=== PATIENT | female | born 1985 | race Caucasian/White ===

== ENCOUNTER 2020-06-27 10:39 | Emergency (ER) | payer OTHER, SELFPAY ==
[2020-06-27 10:59] VITALS: BP 128/77; PULSE 98; RESP 18; TEMP 36.6; O2SAT 100
--- NOTE | 2020-06-27 11:09 | ED.EAR ---
HPI - Ear Problem General Chief complaint: Ear Stated complaint: Ear pain Time Seen by Provider: 06/27/20 11:04 Source: patient and RN notes reviewed Mode of arrival: ambulatory Limitations: no limitations History of Present Illness HPI Narrative: Patient presents today with a 1 week history of bilateral ear pain and intermittent dry cough with postnasal drip. Denies ear drainage, decreased hearing, nasal congestion, rhinorrhea, sore throat, fever, shortness of breath, loss of taste or smell. Denies exposure to COVID-19 or any other sick contacts. She has been taking Tylenol with mild relief Complaint: ear pain Related Data Home Medications Medication Instructions Recorded Confirmed aripiprazole mg 06/27/20 bupropion HCl mg PO 06/27/20 bupropion HCl mg PO 06/27/20 prazosin 06/27/20 venlafaxine mg PO 06/27/20 Allergies Allergy/AdvReac Type Severity Reaction Status Date / Time No Known Allergies Allergy Unverified 05/29/17 21:27 Review of Systems Review of Systems: Narrative: CONSTITUTIONAL: Denies body aches, fever, chills, or sweats. EYES: Denies visual changes, redness, or discharge. ENT: Denies rhinorrhea, congestion, sore throat. + Bilateral ear pain, postnasal drip CARDIOVASCULAR: Denies chest pain, palpitations, or edema. RESPIRATORY: Denies dyspnea. + Cough GASTROINTESTINAL: Denies abdominal pain, nausea, vomiting, or diarrhea. GENITOURINARY: Denies dysuria or hematuria. SKIN: Denies rash, itching, or wounds. MUSCULOSKELETAL: Denies back pain, joint pain, or myalgia. NEUROLOGIC: Denies headache, numbness, tingling, or weakness. PSYCH: Denies depression or anxiety. [facility]LY [facility] Past Medical History Medical History (Updated 06/27/20 @ 11:39 by Jammie Mosher, [facility], ) Delivery with history of Depression Family History Family History (Updated 05/09/14 @ 15:26 by DOCTOR UNKNOWN) Other Family history of cardiovascular disease Family history of malignant neoplasm of cervix Family history of malignant neoplasm of uterus Hypertension Social History Social History Smoking status: Never smoker Alcohol intake: current Comments At time of signature, I have reviewed and agree with nursing past medical, surgical, social and family history unless otherwise noted. Please see nursing chart for further information. There is no relevant family history pertinent to the presenting complaint Exam Narrative: Exam Narrative: GENERAL: Well-appearing, well-nourished, and in no acute distress. HEAD: Normocephalic, atraumatic. EYES: EOMI. No redness or drainage. Conjunctivae normal. ENT: Mucous membranes pink and moist. Nares clear. No rhinorrhea. Right ear canal is completely occluded with soft cerumen. See procedure note. Left ear canal is partially occluded with cerumen, but visible TM is normal. Throat normal with small amount of white postnasal drainage. Uvula midline. NECK: Normal AROM. Supple. No lymphadenopathy. CHEST: No respiratory distress. Clear to auscultation. HEART: Regular rate and rhythm. No murmur appreciated. Normal peripheral pulses. EXTREMITIES: Normal range of motion. No edema. SKIN: Warm, dry, no rash. Capillary refill normal. Normal skin turgor. NEURO: No focal deficits. Alert and oriented x3. Gait steady. PSYCH: Normal affect. No signs of depression or anxiety. Course Vital Signs Vital signs: Vital Signs Temperature 97.8 F 06/27/20 10:59 Pulse Rate 98 06/27/20 10:59 Respiratory Rate 18 06/27/20 10:59 Blood Pressure 128/77 06/27/20 10:59 Pulse Oximetry 100 06/27/20 10:59 Temperature 97.8 F 06/27/20 10:59 Pulse Rate 98 06/27/20 10:59 Respiratory Rate 18 06/27/20 10:59 Blood Pressure 128/77 06/27/20 10:59 Pulse Oximetry 100 06/27/20 10:59 Reviewed. Pt has been instructed to follow up with her PCP regarding her elevated blood pressure today. Procedures Ear Wax Removal Right Ear: Ear Wax Removal
== END 2020-06-27 11:23 | disposition home or self-care (01) ==
PROVIDERS: Emergency Provider Nurse Practitioner
DX: J06.9 Acute upper respiratory infection, unspecified (principal); H61.21 Impacted cerumen, right ear
CPT/HCPCS: 69210; 99212; G0463

== ENCOUNTER 2020-11-21 12:00 | Emergency (ER) | payer OTHER, SELFPAY ==
[2020-11-21 12:33] VITALS: BP 138/85; PULSE 83; RESP 16; TEMP 36.4; O2SAT 100
--- NOTE | 2020-11-21 13:19 | ED.EYEPROB ---
HPI - Eye Problem General Chief complaint: Eye Problems Stated complaint: Eye Pain Time Seen by Provider: 11/21/20 12:45 Source: patient, RN notes reviewed and old records reviewed Mode of arrival: ambulatory Limitations: no limitations History of Present Illness HPI Narrative: 35 year old female who presents to [facility] care with complaints of one week duration of right eye irritation and redness with patient stating clear to greenish drainage from her right eye with her eye matted shut this morning. Patient states that she used baby shampoo to wash her right eye out this morning to remove matter. Patient denies any injury to her right eye or any known foreign body with some redness to the upper eyelid with raised lesion noted middle of upper eyelid right eye along lash line. Patient denies any sharp pain to her right eye or any changes in vision. Visual acuity with right eye 20/30 left eye 20/50 with no corrective lens worn. MD chief complaint: other (eye drainage right eye with lesion upper eyelid.) Onset (ago): week(s) (1) Onset description: gradual Duration: progressively worsening Location: right eye Eye Symptoms: discharge Mechanism: none Treatments Prior to Arrival: OTC eye drops and other (cleansed with baby shampoo) Related Data Allergies Allergy/AdvReac Type Severity Reaction Status Date / Time No Known Allergies Allergy Verified 11/21/20 12:43 Review of Systems Review of Systems: Narrative: CONSTITUTIONAL: Denies fever, chills, or sweats. EYES: Denies visual changes, redness along right upper eyelid, with clear to green discharge. ENT: Denies rhinorrhea, congestion, sore throat, or otalgia. CARDIOVASCULAR: Denies chest pain, palpitations, or edema. RESPIRATORY: Denies cough or dyspnea. GASTROINTESTINAL: Denies abdominal pain, nausea, vomiting, or diarrhea. GENITOURINARY: Denies dysuria or hematuria. SKIN: Denies rash or itching. MUSCULOSKELETAL: Denies back pain, joint pain, or myalgia. NEUROLOGIC: Denies headache, numbness, or weakness. PSYCHIATRIC: Positive history of anxiety or depression. All systems reviewed & are unremarkable except as noted in HPI and below PMFSH Past Medical History Medical History (Updated 11/25/20 @ 14:56 by Latasha Casanova NP) Anxiety Delivery with history of Depression Surgical History Surgical History (Updated 11/25/20 @ 14:57 by Latasha Casanova NP) Hx of cholecystectomy Previous section Family History Family History (Updated 05/09/14 @ 15:26 by DOCTOR UNKNOWN) Other Family history of cardiovascular disease Family history of malignant neoplasm of cervix Family history of malignant neoplasm of uterus Hypertension Social History Social History (Updated 11/25/20 @ 14:59 by Latasha Casanova NP) Smoking status: Current every day smoker Tobacco type: cigarettes Alcohol intake: current Substance use: never Living arrangements: with family Gender identity (if verbalized by the patient): Female Comments At time of signature agree with nursing documentation of social, surgical medical and family history. There is no pertinent family history relevant to presenting complaint. Exam Narrative: Exam Narrative: GENERAL: Well-appearing, well-nourished, and in no acute distress. HEAD: Normocephalic, atraumatic. EYES: PERRLA and EOMI. drainage from right eye clear to greenish in color for past week duration. This morning awoke with her eye matted shut today. No visual changes or sharp pain to her right eye, raised red tissue area along lash line of right upper eyelid ENT: Nares clear, no rhinorrhea or epistaxis. Mucous membranes moist. NECK: Supple.no lymphadenopathy CHEST: Clear to auscultation. No respiratory distress.ARMAND 100% on room air HEART: Regular rate and rhythm. No murmur heard. Normal peripheral pulses. ABDOMEN: Soft, nontender, nondistended, normal active bowel sounds. EXTREMITIES: Normal range of motion. No edema. SKIN: Warm, d
== END 2020-11-21 13:26 | disposition home or self-care (01) ==
PROVIDERS: Emergency Provider Registered Nurse
DX: H00.011 Hordeolum externum right upper eyelid (principal); F17.210 Nicotine dependence, cigarettes, uncomplicated
CPT/HCPCS: 99213; G0463

== ENCOUNTER 2021-08-23 13:45 | Emergency (ER) | payer OTHER, SELFPAY ==
[2021-08-23 13:55] VITALS: BP 134/97; PULSE 84; RESP 16; TEMP 37.5; O2SAT 100
--- NOTE | 2021-08-23 14:32 | ED.EYEPROB ---
HPI - Eye Problem General Chief complaint: Eye Problems Stated complaint: Eye Pain Time Seen by Provider: 08/23/21 14:32 Source: patient and RN notes reviewed Mode of arrival: ambulatory Limitations: no limitations History of Present Illness HPI Narrative: 36-year-old female presents to the [facility] with complaints of bilateral eye discomfort, they were crusted over the last couple days. States redness started sometime last week. Has been using dyth-rkt-pdoanac eyedrops with no relief. Does not wear contact lenses chief complaint: eye pain and eye redness Related Data Allergies Allergy/AdvReac Type Severity Reaction Status Date / Time No Known Allergies Allergy Verified 08/23/21 14:06 Review of Systems Review of Systems: All systems reviewed & are unremarkable except as noted in HPI and below Constitutional: Constitutional: Reports no additional constitutional complaints, Denies chills and Denies fever(s) Eyes: Eyes: Reports as per HPI, Denies change in vision and Denies photophobia Comments: Redness and crusting ENT: Reports system reviewed and no additional complaints, except as documented Cardiovascular: Cardiovascular: Reports no additional cardiovascular complaints Respiratory: Respiratory: Reports no additional respiratory complaints Gastrointestinal: Gastrointestinal: Reports no additional gastrointestinal complaints Musculoskeletal: Musculoskeletal: Reports no additional musculoskeletal complaints Integumentary/Breasts: Skin/Breast: Reports system reviewed and no additional complaints, except as docu Neurologic: Reports system reviewed and no additional complaints, except as documented Psychiatric: Psychiatric: Reports no additional psychiatric complaints Allergic/Immunologic: Allergic/Immunologic: Reports no additional allergic/immunologic complaints PMF Past Medical History Medical History (Updated 08/24/21 @ 00:00 by Lewis Granado) Anxiety Delivery with history of Depression Surgical History Surgical History Hx of cholecystectomy Previous section Family History Family History Other Family history of cardiovascular disease Family history of malignant neoplasm of cervix Family history of malignant neoplasm of uterus Hypertension Social History Social History Smoking status: Current every day smoker Tobacco type: cigarettes Alcohol intake: current Substance use: never Gender identity (if verbalized by the patient): Female Comments At the time of my signature, I reviewed and agree with the nursing past medical, surgical, social, and family history. There is no relevant family history pertinent to the patient complaint. Exam Const: General: healthy appearing, no acute distress and alert Nutritional Appearance: well nourished and obese Orientation/consciousness: patient oriented x3 Limitations: no limitations HENMT: Head: normal to inspection Eyes: Visual Thakkar: normal visual thakkar by confrontation Alignment and Position: alignment normal Periorbital: periorbital findings normal Conjunctivae: conjunctival abnormality bilateral conjunctival injection (With erythema lower lids) Cornea: corneas normal Pupils: Equal, round and reactive pupils present EOM: EOMs intact bilaterally Neck: Neck: normal visual inspection, no lymphadenopathy and no meningeal signs Chest: Chest palpation & inspection: normal inspection of the chest Resp: Effort & Inspection: normal respiratory effort and no use of accessory muscles Auscultation: clear to auscultation bilaterally, no crackles, no rales, no rhonchi and no wheezes Cardio: Rate: regular rate Rhythm: regular rhythm Skin: General skin exam: normal color Rashes: no rashes Wounds: no wounds Neuro: General: patient oriented x3, move
== END 2021-08-23 14:48 | disposition home or self-care (01) ==
PROVIDERS: Emergency Provider Nurse Practitioner
DX: H10.9 Unspecified conjunctivitis (principal); F17.210 Nicotine dependence, cigarettes, uncomplicated
CPT/HCPCS: 99213; G0463

== ENCOUNTER 2021-11-02 16:21 | Emergency (ER) | payer OTHER, SELFPAY ==
[2021-11-02 16:30] VITALS: BP 148/99; PULSE 117; RESP 16; TEMP 37.8; O2SAT 98
--- NOTE | 2021-11-02 16:30 | ED.SKABFB ---
HPI - Skin/Abscess/Foreign Bdy General Chief complaint: Skin/Abscess/Foreign Body Stated complaint: Insect bite Time Seen by Provider: 11/02/21 16:30 Source: patient, RN notes reviewed and old records reviewed Mode of arrival: ambulatory Limitations: no limitations History of Present Illness HPI narrative: 36-year-old female presents to the [facility] after believing she was bit by an insect yesterday to the left posterior upper arm. Redness, inflammation and increased warmth to the area. Center is 2 cm diameter red indurated area with a blister. Redness extends up to 12 cm at its widest point. No pain or tenderness to the joints distal to infection. No treatment prior to arrival MD complaint: insect bite/sting Related Data Allergies Allergy/AdvReac Type Severity Reaction Status Date / Time No Known Allergies Allergy Verified 08/23/21 14:06 Review of Systems Review of Systems: All systems reviewed & are unremarkable except as noted in HPI and below Constitutional: Constitutional: Reports no additional constitutional complaints, Denies chills, Denies fever(s), Denies headache(s) and Denies weakness Eyes: Eyes: Reports no additional eye complaints and Denies change in vision ENT: Reports system reviewed and no additional complaints, except as documented, Denies dysphagia, Denies dizziness, Denies headache(s), Denies nasal congestion and Denies sore throat Cardiovascular: Cardiovascular: Reports no additional cardiovascular complaints, Denies chest pain, Denies syncope and Denies dyspnea Respiratory: Respiratory: Reports no additional respiratory complaints, Denies chest congestion, Denies cough, Denies dyspnea and Denies wheezing Gastrointestinal: Gastrointestinal: Denies dysphagia Musculoskeletal: Musculoskeletal: Reports no additional musculoskeletal complaints and Denies numbness Integumentary/Breasts: Skin/Breast: Reports as per HPI and Reports erythema (Posterior left upper arm) Neurologic: Reports system reviewed and no additional complaints, except as documented, Denies dizziness, Denies syncope, Denies headache(s), Denies focal weakness, Denies numbness and Denies weakness Psychiatric: Psychiatric: Reports no additional psychiatric complaints Allergic/Immunologic: Allergic/Immunologic: Reports no additional allergic/immunologic complaints and Denies wheezing PMFSH Past Medical History Medical History (Updated 11/02/21 @ 20:18 by Kamilah Owens APRN) Anxiety Delivery with history of Depression Surgical History Surgical History Hx of cholecystectomy Previous section Family History Family History Other Family history of cardiovascular disease Family history of malignant neoplasm of cervix Family history of malignant neoplasm of uterus Hypertension Social History Social History Smoking status: Current every day smoker Tobacco type: cigarettes Alcohol intake: current Substance use: never Gender identity (if verbalized by the patient): Female Comments At the time of my signature, I reviewed and agree with the nursing past medical, surgical, social, and family history. There is no relevant family history pertinent to the patient complaint. Exam Const: General: healthy appearing, no acute distress and alert Nutritional Appearance: well nourished Orientation/consciousness: patient oriented x3 Limitations: no limitations HENMT: Head: normal to inspection Ears: external ears normal Eyes: Pupils: Equal, round and reactive pupils present Neck: Neck: normal visual inspection, no lymphadenopathy and no meningeal signs Chest: Chest palpation & inspection: normal inspection of the chest Resp: Effort & Inspection: normal respiratory effort Auscultation: clear to auscultation bilaterally Cardio: Rate: regu
== END 2021-11-02 16:38 | disposition home or self-care (01) ==
PROVIDERS: Emergency Provider Nurse Practitioner
DX: L03.114 Cellulitis of left upper limb (principal); F17.210 Nicotine dependence, cigarettes, uncomplicated
CPT/HCPCS: 99213; G0463

== ENCOUNTER 2022-07-03 02:47 | Emergency (ER) | payer OTHER, SELFPAY ==
--- NOTE | ~2022-07-03 | CT_ITS ---
EXAMINATION: CT pelvis w con DATE: 07/03/2022 06:02 INDICATION: Left labial swelling, abscess TECHNIQUE: Computed tomography (CT) of the pelvis was performed with 100 CC Omnipaque 350 intravenous contrast. Automated exposure control and iterative reconstruction technique were employed. Exam dose : 1059.38 mGy-cm total exam DLP. COMPARISON: 05/01/2014 CT abdomen pelvis FINDINGS: There is septated up to approximately 1.5 cm wide 8.5 cm anteroposterior dimension abscess is approximately 4 mm thick wall along the left labium. Left ovarian cysts are noted measuring up to approximately 2 cm. Peripherally enhancing approximately 1.7 cm left ovarian cyst. The uterus and adnexal areas are otherwise unremarkable. Normal appendix. No bowel obstruction is evident. The inferior tips of the kidneys are unremarkable. Distal abdominal aorta is of normal caliber. No in traperitoneal or retroperitoneal or pelvic mass lesion or adenopathy or ascites is noted otherwise. Included skeletal structures are unremarkable. IMPRESSION: Left labial abscess Left ovarian cysts Normal appendix Reviewed, dictated and finalized at [facility] Reviewed, dictated and finalized at [facility]. [facility] [employer]
[2022-07-03 02:50] VITALS: BP 156/78; PULSE 110; RESP 20; TEMP 36.6; O2SAT 98
[2022-07-03 03:44] VITALS: BP 138/91; O2SAT 99
[2022-07-03 03:46] VITALS: BP 122/76; O2SAT 99
[2022-07-03] MEDS: SODIUM CHLORIDE 0.9% IV 1,000 ML 999 ML IV CONT (03:51)
[2022-07-03] MEDS: KETOROLAC 30 MG/ML VIAL (*BKC) IV PUSH (03:51)
[2022-07-03] MEDS: HYDROmorphone HCL INJ (*CRX) 1 MG/ML SYR 0.5 MG IV PUSH (03:52)
[2022-07-03] MEDS: ONDANSETRON INJ 4 MG/2 ML VIAL IV PUSH (03:52)
[2022-07-03 03:54] LABS: Basophils Percent Auto 0.2 % (0.2-1.2); Eosinophils Absolute Auto 0.1 K/mm3 (0-0.3); Eosinophils Percent Auto 0.7 % (0-4.4); Hematocrit 34.7 % (37.0-47.0); Hemoglobin 11.4 g/dL (12.0-15.0); Immature Granulocyte Percent A 0.6 % (0-0.5); Lymphocytes Percent Auto 10.2 % (18.3-44.2); Mean Corpuscular HGB Conc 32.9 g/dl (32-36); Mean Corpuscular Hemoglobin 29.9 pg (26-34); Mean Corpuscular Volume 91.1 fl (80-100); Monocytes Absolute Auto 1.4 K/mm3 (0.1-0.6); Monocytes Percent Auto 7.9 % (2.6-8.5); Neutrophils Absolute Auto 14.2 K/mm3 (1.3-6.7); Neutrophils Percent Auto 80.4 % (45.5-73.1); Platelet Count Result 323 k/mm3 (150-375); Red Blood Count 3.81 M/mm3 (4.2-5.4); Red Cell Distribution Width 12.3 % (11.5-14.5); White Blood Count 17.7 K/mm3 (4.5-10.0)
[2022-07-03 04:01] LABS: CRP 4.9 mg/dL (<1.0)
[2022-07-03] MEDS: CLINDAMYCIN 600 MG/D5W 50 ML 600 MG/50 ML PIGGYBACK 100 MG IVPB (04:23)
[2022-07-03 05:18] LABS: Chloride 105 mmol/L (98-107)
[2022-07-03 05:22] LABS: Alanine Aminotransferase 22 U/L (6-35); Albumin Level 3.6 g/dL (3.5-5.1); Alkaline Phosphatase 99 U/L (38-126); Anion Gap 6 mmol/L (8-16); Aspartate Amino Transferase 19 U/L (14-36); Bilirubin,Total 0.2 mg/dL (0.2-1.3); Blood Urea Nitrogen 14 mg/dL (7-17); Calcium 7.9 mg/dL (8.4-10.2); Carbon Dioxide 25 mmol/L (22-30); Estimated CRCL calculation 103 ml/min; Estimated Glomerular Filt Rate > 60; Glucose 133 mg/dL (65-110); Potassium 3.9 mmol/L (3.4-5.0); Sodium 136 mmol/L (137-145)
--- NOTE | 2022-07-03 05:57 | ED.SKABFB ---
HPI - Skin/Abscess/Foreign Bdy General Chief complaint: Skin/Abscess/Foreign Body Stated complaint: cyst to labia Time Seen by Provider: 07/03/22 02:58 Source: patient, RN notes reviewed and old records reviewed Mode of arrival: ambulatory Limitations: no limitations History of Present Illness HPI narrative: This is a 37 year old female who presents for evaluation of left labial cyst. She reports having recurrent labial cyst/abscess. She is scheduled to have surgery on Tuesday by Dr. Camilo, and she states her cyst was drained earlier this week. She reports her swelling and pain has progressively worsened. She was started on bactrim and norco today. She took norco 2 hours ago without any relief. She denies fever, chills, nausea , or vomiting. She denies any purulent drainage. Related Data Home Medications Medication Instructions Recorded Confirmed ibuprofen 600 mg tablet 600 mg PO Q6H PRN Pain 07/01/22 07/01/22 Allergies Allergy/AdvReac Type Severity Reaction Status Date / Time No Known Allergies Allergy Verified 07/01/22 15:04 Review of Systems Constitutional: Constitutional: Denies weakness Cardiovascular: Cardiovascular: Denies syncope, Denies rapid heart rate, Denies irregular heart rhythm, Denies leg edema and Denies dyspnea Respiratory: Respiratory: Denies chest congestion, Denies hemoptysis, Denies excessive phlegm production and Denies dyspnea Gastrointestinal: Gastrointestinal: Denies abdominal pain, Denies hematochezia, Denies diarrhea and Denies vomiting Genitourinary: Genitourinary: Denies hematuria, Reports genital lesions and Denies dysuria Musculoskeletal: Musculoskeletal: Denies joint swelling, Denies loss of height and Denies muscle weakness Neurologic: Denies syncope, Denies focal weakness and Denies weakness PMFSH Past Medical History Medical History (Updated 07/03/22 @ 07:03 by Gabi Berg MD) Anxiety Delivery with history of Depression Surgical History Surgical History Hx of cholecystectomy Previous section Family History Family History Other Family history of cardiovascular disease Family history of malignant neoplasm of cervix Family history of malignant neoplasm of uterus Hypertension Social History Social History Years smoked: 10 Smoking status: Current every day smoker Tobacco type: cigarettes Alcohol intake: current Alcohol use details: 2/MONTH Substance use: never Substance use type: does not use Additional living arrangements comments: CHILDREN Gender identity (if verbalized by the patient): Female Spiritual care concerns: No Exam Const: General: alert Nutritional Appearance: obese Orientation/consciousness: patient oriented x3 Other: patient is grunting in pain. HENMT: Head: normal to inspection Eyes: EOM: EOMs intact bilaterally Chest: Chest palpation & inspection: normal inspection of the chest Resp: Effort & Inspection: normal respiratory effort Auscultation: clear to auscultation bilaterally Cardio: Rate: regular rate Rhythm: regular rhythm GI: Auscultation: normal bowel sounds : Other: left labial with significant swelling, erythema and tendernes Neuro: General: patient oriented x3, moves all extremities and CN's II-XI intact bilaterally Extrem: General: normal to inspection Psych: Mental Status: mental status grossly normal Affect: normal affect Attitude: cooperative Course Reevaluation(s) Reevaluation #1: I went to discuss with CT showed labial abscess. She states it is now draining. On examination she does have purulent drainage. She reports she feels better and she is comfortable with discharge. She is set for surgery on Tuesday with Dr. Camilo. I discussed return precautions with patient. Date: 07/03/22 T
[2022-07-03 06:17] VITALS: O2SAT 97
[2022-07-03 06:18] VITALS: BP 109/40; PULSE 93; RESP 18; O2SAT 97
[2022-07-03 07:24] VITALS: BP 112/83; PULSE 81; RESP 18; O2SAT 100
== END 2022-07-03 07:20 | disposition home or self-care (01) ==
PROVIDERS: Emergency Provider General Practice
DX: N76.4 Abscess of vulva (principal); F17.210 Nicotine dependence, cigarettes, uncomplicated; N83.202 Unspecified ovarian cyst, left side
CPT/HCPCS: 36415; 72193; 80053; 81025; 85025; 86140; 96361; 96365; 96375; 99284; J1170; J1885; J2405; J7030; Q9967

== ENCOUNTER 2022-07-05 01:14 | Day surgery (SDC) | payer OTHER, SELFPAY ==
[2022-07-01 15:04] VITALS: BMI 40.2
--- NOTE | 2022-07-01 15:09 | PC.NURSE ---
Report to the Outpatient Waiting Room, entrance under the green pavilion located off [facility], at time 0830 on date 07/05/22. Planned Procedure Time: 1030. Time changes happen often and if your time is changed the preop area will call you the afternoon before. - You and your visitor will be asked to self-screen and do not enter if you have any COVID symptoms. - Only one visitor is requested with a max of two and NO children visitors are allowed at this time. - The patient visitor may be requested to leave or wait in car when not with patient due to distancing restrictions. - A mask is REQUIRED within the hospital. Patients may have clear liquids (water, carbonated beverages, clear teas, apple juice) until 3 hours prior to surgery with a maximum of 20 ounces. - No food from midnight until time of surgery Take the following medications with a SIP of water the morning of surgery: NONE Medications to discontinue per physician: N/A Date to take last dose: N/A Please no make-up, nail occitan, hairspray, perfume, deodorant, or body powder the day of surgery. No jewelry (including any body piercings) or valuables the day of surgery, leave them at home. Please take a shower or bath the night before, or the morning of, surgery with an antibacterial soap. Wear comfortable, loose fitting clothing. - Jewelry must be removed prior to entering the operating room. Rings and piercings that are not removed may be cut off. - The hospital will not accept responsibility for valuables. - Please leave all valuables, including medications, at home the day of surgery. If you are going home after surgery, a licensed company driver must drive you home. - NO public transportation without another adult if you receive anesthesia. - We recommend that an adult stay with you for 24 hours following discharge. - We also recommend that you do not drive, make important decision, drink alcoholic beverages, or take any drugs that were not prescribed by your health care provider for at least 24 hours after your discharge time. Follow any additional instructions given to you from your surgeon. If you or anyone in your household have experienced Covid symptoms in the past week, please notify your surgeon or the nurse liaison at the phone number below for possible testing. Telephone instructions given to PT - LIUDMILA CORADO and asked if any additional questions and then verbalized understanding. Patient advised to call surgeon office or pre surgery nurse liaison [phone] if any additional questions.
[2022-07-05] VITALS (10 sets, daily range): BP systolic 104–148; BP diastolic 66–100; PULSE 76–112; RESP 14–20; TEMP 37.1; O2SAT 97–100
--- NOTE | 2022-07-05 08:00 | WPDHPUPDATE1 ---
History and Physical Update Update Date/Time: 07/05/22 08:00 History and Physical has been reviewed, including an updated exam of the patient. There are NO changes in the patient's condition. Risks, benefits, and alternatives have been discussed and questions answered. Patient agrees to proceed with procedure.
--- NOTE | 2022-07-05 08:00 | PM.HPGS ---
History of Present Illness History of Present Illness Consent: Risks, benefits, and alternatives have been discussed and questions answered. Patient agrees to proceed with procedure. Chief complaint: Recurrent Bartholin Abscess Narrative: Rena Silverio is a 37 year old female patient with a recent prepped and the abscess. Office incision and drainage was performed with initial good relief. Within a few weeks the abscess had returned. It was recommended to undergo marsupialization. Patient preferred to have this done in the office. This was performed however the abscess again returned. Was recommended to proceed with marsupialization in the operating room with a larger incision and anesthesia. She was given Septra and [place] for pain management over the weekend. Patient did proceed to the emergency room over the weekend prior to surgery. Risks of recurrence, chronic pain, and scarring were reviewed. Patient voices understanding and agrees to proceed. Review of Systems Review of Systems: not repeated day of surgery; patient states no changes in status PMFSH Past Medical History Medical History (Updated 07/05/22 @ 08:06 by Hoda Camilo MD) Anxiety Chlamydia Depression Trichomonas vaginitis Surgical History Surgical History (Updated 07/05/22 @ 08:04 by Hoda Camilo MD) Hx of cholecystectomy 2014 Previous section with 1 patient had hemorrhage requiring 3units of packed red blood cells X3 Family History Family History Other Family history of cardiovascular disease Family history of malignant neoplasm of cervix Family history of malignant neoplasm of uterus Hypertension Social History Social History Years smoked: 10 Smoking status: Current every day smoker Tobacco type: cigarettes Alcohol intake: current Alcohol use details: 2/MONTH Substance use: never Substance use type: does not use Living arrangements: with family Additional living arrangements comments: CHILDREN Gender identity (if verbalized by the patient): Female Spiritual care concerns: No Meds Home Medications and Allergies Home Medications Medication Instructions Recorded Confirmed Type ibuprofen 600 mg tablet 600 mg PO Q6H PRN Pain 07/01/22 07/01/22 History clindamycin HCl 300 mg capsule 300 mg PO Q6H 10 days #40 caps 07/03/22 Rx ibuprofen 600 mg tablet 600 mg PO Q6H PRN pain #14 tabs 07/03/22 Rx Allergies Allergy/AdvReac Type Severity Reaction Status Date / Time No Known Allergies Allergy Verified 07/01/22 15:04 Exam Const: General: healthy appearing and alert Orientation/consciousness: patient oriented x3 Resp: Effort & Inspection: normal respiratory effort GI: GI Palp: Yes Soft to palpation, No Tenderness to palpation present (GI) and No Palpable mass present : External Female Exam: other ( large left Bartholin abscess) Speculum Exam - Vagina: normal appearance of the vagina and normal vaginal discharge Speculum Exam - Cervix: normal appearance of the cervix Bimanual exam- vagina & uterus: uterine size normal and consistency normal Bimanual Exam- Adnexa, other: normal adnexae and No adnexal tenderness Neuro: General: patient oriented x3 Assessment and Plan Assessment and plan (1) Bartholin's gland abscess: Code(s): N75.1 - Abscess of Bartholin's gland Status: Acute Assessment and Plan: plan to proceed with marsupialization
--- NOTE | 2022-07-05 08:33 | WPDANESEPPF ---
Anes - Initial Pre Proc Eval Procedure: Operation Date: 07/05/22 10:30 Proposed Procedures p Marsupialization Bartholin's Cyst Abscess - Hoda Camilo MD Date/Time: 07/05/22 08:33 Surgeon: Hoda Camilo MD Pre Op Diagnosis: Recurrent Bartholin Abscess Patient Data Age: 37 Gender: F Height: 1.57 m Weight: 99.79 kg Allergies Allergy/AdvReac Type Severity Reaction Status Date / Time No Known Allergies Allergy Verified 07/01/22 15:04 Home Medications Medication Instructions Recorded Confirmed Type ibuprofen 600 mg tablet 600 mg PO Q6H PRN Pain 07/01/22 07/01/22 History clindamycin HCl 300 mg capsule 300 mg PO Q6H 10 days #40 caps 07/03/22 Rx ibuprofen 600 mg tablet 600 mg PO Q6H PRN pain #14 tabs 07/03/22 Rx Patient hx anesthesia problems: none Family hx anesthesia problems: none Results Review: All pre-operative results and documents have been reviewed as part of the pre-operative evaluation. [facility] Past Medical History Medical History (Updated 07/05/22 @ 08:06 by Hoda Camilo MD) Anxiety Chlamydia Depression Trichomonas vaginitis Surgical History Surgical History (Updated 07/05/22 @ 08:04 by Hoda Camilo MD) Hx of cholecystectomy 2014 Previous section with 1 patient had hemorrhage requiring 3units of packed red blood cells X3 Family History Family History Other Family history of cardiovascular disease Family history of malignant neoplasm of cervix Family history of malignant neoplasm of uterus Hypertension Social History Social History Years smoked: 10 Smoking status: Current every day smoker Tobacco type: cigarettes Alcohol intake: current Alcohol use details: 2/MONTH Substance use: never Substance use type: does not use Living arrangements: with family Additional living arrangements comments: CHILDREN Gender identity (if verbalized by the patient): Female Spiritual care concerns: No Anes - Eval Final PreProcedure Day of Procedure 07/05/22 08:33 Patient weight: morbidly obese Heart: regular rate and rhythm Lungs: clear to auscultation Airway: Mallampati scale class II and special considerations poor dentition Neurological: alert and oriented Last oral intake: >/= 8 hours ASA classification: III Emergent: no Anesthetic plan: proceed Anesthesia type and monitoring: general GIVS and standard monitoring Results Review: All pre-operative results and documents have been reviewed as part of the pre-operative evaluation. Informed Consent: The patient's anesthetic plan and its attendant risks and benefits were discussed with the patient/family/POA. Questions were solicited and answers provided to the satisfaction of the patient/family/POA.
[2022-07-05] MEDS: LACTATED RINGERS 1,000 ML 30 ML IV CONT ×2 (09:35→12:00)
--- NOTE | 2022-07-05 10:32 | W.PM.PROC2 ---
Procedure Note - Detailed Date of Procedure 07/05/22 Pre-op Diagnosis Recurrent Bartholin Abscess Post-op Diagnosis Same Procedure Performed Marsupialization of left Bartholin abscess Surgeon Hoda Camilo MD Anesthesia MAC and Local ( 2% lidocaine with epinephrine) Findings one suture left from previous marsupialization; evidence of spontaneous rupture anterior inner labia; indurated tissue with clear cystic fluid within remaining mass Description of Procedure The patient was taken to the operating room and placed under anesthesia in the dorsal lithotomy position. Previous suture was removed. The inner labia is injected with 2% lidocaine with epinephrine and a 2cm skin incision was made. Moderate amount of clear fluid is drained. Using a Cecille clamp the inner cyst is probed and all scar tissue broken up. 3-0 [address] is used to place a stitch 12, 3, 6 and 9:00. A Word catheter was then placed and filled with 5cc saline which held the balloon in place. The patient was awakened from anesthesia and taken to recovery in stable condition. Sponge, needle, and instrument counts are correct per the OR staff. Estimated Blood Loss 5 Drains Yes (Word catheter) Packing No Pathology None sent Complications No immediate complications Condition Stable Disposition PACU
[2022-07-05] MEDS: fentaNYL CITRATE INJ (*CRX) 100 MCG/2 ML VIAL 25 MCG IV PUSH ×5 (10:51→13:25)
[2022-07-05] MEDS: HYDROmorphone HCL INJ (*CRX) 1 MG/ML SYR 0.5 MG IV PUSH ×4 (11:21→12:52)
--- NOTE | 2022-07-05 11:43 | SUR.PHASEII ---
1120 - dr. thomas called in regards to saturations of [place]-pads. will continue to monitor 1140 - dr. thomas called in regards to pt's c/o pain and continuous bleeding. orders received
[2022-07-05] MEDS: TRANEXAMIC ACID 1,000 MG/10 ML AMPUL 1000 MG IV PUSH (11:50)
--- NOTE | 2022-07-05 13:15 | SUR.PHASEII ---
RN paged Dr. Camilo at [id number]. RN spoke to Dr. Camilo at [id number]. Patient saturated a pad in less than 5 minutes. Patient applied new pad and walked to the bathroom to void. Patient filled the toilet with bright red drainage. Dr. Camilo aware of significant drainage at this time. Dr. Camilo gave RN verbal orders to remove WORD catheter since patient is unable to tolerate.
--- NOTE | 2022-07-05 13:25 | SUR.PHASEII ---
1320: SALLY Aguilar called Dr. Camilo and she is on her way here to assess patient.
--- NOTE | 2022-07-05 13:30 | SUR.PHASEII ---
1132 - dr. thomas in op recovery assessing pt
--- NOTE | 2022-07-05 13:40 | SUR.PHASEII ---
1195 - dr. thomas removed drain. will monitor bleeding and pain. if no relief, will call dr. thomas as ordered
[2022-07-05] MEDS: oxyCODONE HCL (*CRX) 5 MG TAB IR PO (13:47)
--- NOTE | 2022-07-05 14:34 | SUR.PHASEII ---
1429 - dr. thomas called to check on patient. pt's bleeding, minimal. pain tolerable. ok to discharge home
== END 2022-07-05 14:39 | disposition home or self-care (01) ==
PROVIDERS: Visit Provider Obstetrics & Gynecology Gynecology
PROC: (CPT 56440; principal; 2022-07-05 10:30)
DX: N75.1 Abscess of Bartholin's gland (principal); F17.210 Nicotine dependence, cigarettes, uncomplicated; E66.01 Morbid (severe) obesity due to excess calories; Z68.41 Body mass index [BMI] 40.0-44.9, adult
CPT/HCPCS: 56440; A9270; J1170; J2250; J2704; J3010; J7120

== ENCOUNTER 2024-09-04 11:07 | Emergency (ER) | payer OTHER, SELFPAY ==
[2024-09-04 11:16] VITALS: BP 141/84; PULSE 80; RESP 14; TEMP 36.8; O2SAT 98
--- NOTE | 2024-09-04 11:22 | ED.EAR ---
HPI - Ear Problem General Chief complaint: Ear Stated complaint: right ear bleeding Time Seen by Provider: 09/04/24 11:22 Source: patient and RN notes reviewed Mode of arrival: ambulatory Limitations: no limitations History of Present Illness HPI Narrative: 39-year-old female presents with concern for right ear pain bleeding. Reports her right ear was hurting overnight, then she felt a pop in his started to bleed. She reports she currently does not have any pain. She reports history of ear infections as a child. She denies hearing changes or cold symptoms MD Complaint: ear pain Related Data Allergies Allergy/AdvReac Type Severity Reaction Status Date / Time No Known Allergies Allergy Verified 09/04/24 11:14 Review of Systems Review of Systems: CONSTITUTIONAL: Denies malaise, chills, sweats, or fever. EYES: Denies visual changes, redness, or discharge. ENT: Denies rhinorrhea, congestion, sinus pain, and sore throat. Reports right ear pain and bleeding CARDIOVASCULAR: Denies chest pain, palpitations, or edema. RESPIRATORY: Denies cough. Denies dyspnea. GASTROINTESTINAL: Denies abdominal pain, nausea, vomiting, diarrhea SKIN: Denies rash or itching. MUSCULOSKELETAL: Denies myalgia. NEUROLOGIC: Denies headache. All systems reviewed & are unremarkable except as noted in HPI and below PMFSH Past Medical History Medical History (Updated 09/04/24 @ 11:28 by Kamilah Stephenson NP) Trichomonas vaginitis Chlamydia Anxiety Depression Surgical History Surgical History (Updated 07/05/22 @ 08:04 by Hoda Camilo MD) Previous section with 1 patient had hemorrhage requiring 3units of packed red blood cells X3 Hx of cholecystectomy 2014 Family History Family History Other Family history of cardiovascular disease Family history of malignant neoplasm of cervix Family history of malignant neoplasm of uterus Hypertension Social History Social History Years smoked: 10 Smoking status: Current every day smoker Tobacco type: cigarettes Alcohol intake: current Alcohol use details: 2/MONTH Substance use: never Substance use type: does not use Living arrangements: with family Additional living arrangements comments: CHILDREN Gender identity (if verbalized by the patient): Female Spiritual care concerns: No Comments At time of signature, agree with nursing past medical, surgical, social and family history. There is no relevant family history pertinent to the presenting complaint Exam Narrative: GENERAL: Well-appearing, well-nourished, and in no acute distress. HEAD: Normocephalic EYES: PERRLA, conjunctivae clear ENT: Nares clear. Mucous membranes moist. Left TM pearly ramos with sharp light reflex, right TM ruptured with evidence of prior bleeding, no apparent active bleeding; no tragal tenderness. Oropharynx not erythematous without lesions. Tonsils not enlarged and without exudate, no drooling, no hoarseness, no trismus, uvula midline. NECK: Supple. No lymphadenopathy CHEST: Clear to auscultation, breath sounds equal. No wheezing, rhonchi, rales, or stridor. No respiratory distress, speaks in full sentences. HEART: Regular rate and rhythm. No murmur heard. SKIN: Warm, dry, no rash. NEURO: Alert and oriented x3. PSYCH: Normal mood and affect Course Course Emergency Course: Patient is aware of diagnosis, understands and agrees to treatment plan. Anticipatory guidance given. Patient agrees to follow-up as directed and is aware of reasons to seek care at the emergency department. Portions of this record may have been created with voice recognition software Level of Care: [facility] Visit Vital Signs Vital signs: Vital Signs Temperature 98.3 F 09/04/24 11:16 Pulse Rate 80 09/04/24 11:16 Respiratory Rate 14 09/04/24 11:16 Blood Pressure 141/84 H 09/04/24 11:16 Pulse Oximetry 98 09/04/24 11:16 Oxygen Delivery Room Air 09/04/24 11:16 Temperature 98.3 F 09/04/24 11:16 Pulse Rate 80 09/04/24 11:16 Respiratory Rate 14 09/04/24 11:16 Blood Pressure 141/84 H 09/04/24 11:16 Pulse Oximetry 98 09/04/24 11:16 Oxygen Delivery Room Air 09/04/24 11:16 Reviewed. Medical Decision Making MDM Narrative Medical decision making narrative: I evaluated this in the [facility] care. History is obtained from patient who is an independent historian and physical exam was performed.? Available medical records were reviewed. ? Exam findings and relevant testing show no acute concerns or changes; patient is non-toxic appearing and is in no distress. Differential diagnosis considered: Harden virus, strep pharyngitis, allergic rhinitis, upper respiratory tract infection, sinusitis, rhinosinusitis, nasopharyngitis. viral pharyngitis, otitis media, otitis externa, otitis effusion, cerumen impaction, foreign body. Exam findings show no acute concerns or changes; patient is non-toxic appearing and is in no distress. Patient is appropriate for outpatient treatment and follow-up. ? Differential diagnosis and treatment plan were discussed with the patient. Patient agrees with discussion and after shared medical decision making agrees with plan of care. All questions were answered to the patient's satisfaction. Patient is appropriate for outpatient treatment and follow-up. Vital Signs Vital Signs: Vital Signs Temperature 98.3 F 09/04/24 11:16 Pulse Rate 80 09/04/24 11:16 Respiratory Rate 14 09/04/24 11:16 Blood Pressure 141/84 H 09/04/24 11:16 Pulse Oximetry 98 09/04/24 11:16 Oxygen Delivery Room Air 09/04/24 11:16 Temperature 98.3 F 09/04/24 11:16 Pulse Rate 80 09/04/24 11:16 Respiratory Rate 14 09/04/24 11:16 Blood Pressure 141/84 H 09/04/24 11:16 Pulse Oximetry 98 09/04/24 11:16 Oxygen Delivery Room Air 09/04/24 11:16 Critical Care Time Critical Care Time Critical Care Time: No Discharge Plan Discharge Clinical Impression: Eardrum rupture, right Patient Disposition: Home, Self-Care Condition: Stable Instructions: Ruptured Eardrum (ED), How to Use Ear Drops (ED) Additional Instructions: 1) Please follow-up with your primary care doctor in the next 1-2 days. 2) If you have any worsening of symptoms or any other urgent concerns please go to the ER. 3) Please take medications as prescribed and continue taking your home medications as usual. 4) Please read and follow information included in discharge instructions. Patient Language: Indonesian Prescriptions: New ofloxacin 0.3 % drops 5 drp RIGHT EAR DAILY 7 Days Qty: 10 0RF Follow-up/Referrals: Tereso,LEROY Richter [Primary Care Provider] - Time of Disposition: 11:29
== END 2024-09-04 11:32 | disposition home or self-care (01) ==
PROVIDERS: Emergency Provider Nurse Practitioner; PCP Nurse Practitioner Family
DX: H72.91 Unspecified perforation of tympanic membrane, right ear (principal); F17.210 Nicotine dependence, cigarettes, uncomplicated
CPT/HCPCS: 99213; G0463